=== PATIENT | male | born 1990 | race Caucasian/White ===

== ENCOUNTER 2020-03-27 05:19 | Day surgery (SDC) | payer OTHER ==
[2020-03-26 11:54] VITALS: BMI 29.8
[2020-03-27 06:34] LABS: HEMATOCRIT 44.8 % (35.4-49); HEMOGLOBIN 14.4 GM/dL (11.7-16.9); MCH 27.1 pg (25.7-33.7); MCHC 32.2 g/dl (32.0-35.9); MEAN CELL VOLUME 84.3 fl (80-96); MEAN PLT VOLUME 9.2 fl (7.5-11.1); PLATELET COUNT 268 K/MM3 (134-434); RBC 5.31 M/mm3 (4.00-5.60)
[2020-03-27 06:50] LABS: POTASSIUM 4.3 mmol/L (3.5-5.1)
[2020-03-27 06:52] LABS: CALCIUM 9.6 mg/dL (8.5-10.1)
[2020-03-27 06:53] LABS: ALBUMIN 4.1 g/dl (3.4-5.0); BLOOD UREA NITROGEN 14.4 mg/dL (7-18); INR 1.08 (0.83-1.09)
[2020-03-27 06:56] LABS: CREATININE 1.2 mg/dL (0.55-1.3)
[2020-03-27 06:58] LABS: BILIRUBIN,TOTAL 0.5 mg/dL (0.2-1); TOT PROT 7.2 g/dl (6.4-8.2)
[2020-03-27] MEDS ORDERED: THROMBIN (BOVINE) 5,000 UNIT VIAL TP ONE (07:20)
[2020-03-27] MEDS ORDERED: LIDOCAINE 1%/EPI 1:100000 (50 ML MULTI DOSE VIAL) ONE (07:23)
[2020-03-27] MEDS ORDERED: PROPOFOL 20 ML ONE ×2 (07:23→07:29)
[2020-03-27] MEDS ORDERED: LIDOCAINE HCL/PF 2% SDV 5ML VIAL ONE (07:23)
[2020-03-27] MEDS ORDERED: MIDAZOLAM HCL 2 MG/2 ML SINGLE DOSE VIAL ONE (07:24)
[2020-03-27] MEDS ORDERED: SUCCINYLCHOLINE CHLORIDE 200 MG/10 ML SYRINGE ONE (07:24)
[2020-03-27] MEDS ORDERED: CLINDAMYCIN PHOSPHATE 600 MG/4 ML VIAL ONE (08:04)
[2020-03-27] MEDS ORDERED: CLINDAMYCIN 600 MG PREMIX BAG IVPB ONE (08:34)
[2020-03-27] MEDS ORDERED: LIDOCAINE HCL 1% PRESERVATIVE FREE - 30ML VIAL INF ONE (08:43)
[2020-03-27] MEDS ORDERED: BUPIVACAINE HCL/PF 0.5% (5 MG/ML) 30 ML VIAL IJ ONE (09:00)
[2020-03-27 11:18] VITALS: BP 110/69; PULSE 100; TEMP 97.2
== END 2020-03-27 11:25 | disposition home or self-care (01) ==
LOC: JASU-SURG 05:19
PROVIDERS: ATTEND Surgery
PROC: 0JB40ZZ Excision of Right Neck Subcutaneous Tissue and Fascia, Open Approach (ICD-10-PCS; principal; 2020-03-27 08:00)
DX: L72.3 Sebaceous cyst (principal)
CPT/HCPCS: 36415; 80053; 85027; 85610; 88304-TC; 93005; 93010; 94760